=== PATIENT | male | born 1975 | race Caucasian/White ===

== ENCOUNTER 2017-07-24 01:56 | Emergency (ER) | payer MEDICAID ==
[2017-07-24] MEDS ORDERED: FLUORESCEIN SODIUM 1 MG STRIP OP ONE (02:09)
[2017-07-24] MEDS ORDERED: PROPARACAINE 0.5% 15 ML OPHT DROP ONE (02:09)
[2017-07-24] MEDS ORDERED: OFLOXACIN 0.3% SOLN PREPACK OPHT.BTL TAKEHOME ONE (03:48)
--- NOTE | 2017-07-24 03:50 | EDPHY ---
H & P Stated Complaint: possible piece of glass in left eye Time Seen by Provider: 07/24/17 03:31 HPI/ROS: HPI The patient presents with left eye pain and irritation. Earlier tonight a glass bowl broke on the table in front of him and he felt a shard of glass enter his left eye. He was able to flush his eye with some improvement in the symptoms, however he continues to have irritation and redness of his eye. He does not have any vision changes. He does not have any drainage from the eye. He does not wear contacts. He denies any other complaints.. REVIEW OF SYSTEMS Constitutional: No fever, no chills. Eyes: No discharge. Skin: No rashes. Neurological: No headache. PMHx: Healthy PHYSICAL General Appearance: Alert, no distress Eyes: Pupils equal and round no pallor or injection EYE EXAM Visual Acuity: noted from Nurse's notes. Pupils: equal round and reactive to light EOMI Skin: no proptosis, no periorbital erythema or swelling, no vesicles, upper eyelid everted with no foreign body visualized Conjunctivae: diffuse injection, no discharge Cornea: exam with fluoroscein shows multiple small abrasions at 6 o'clock which are superficial Anterior chamber:normal, no hyphema or hypopyon ENT, Mouth: Mucous membranes moist Respiratory: Breathing comfortably Extremities: symmetrical, full range of motion Psychiatric: Patient is oriented X 3, there is no agitation Source: Patient Exam Limitations: No limitations - Personal History Current Tetanus Diphtheria and Acellular Pertussis (TDAP): Unsure - Medical/Surgical History Hx Asthma: No Hx Chronic Respiratory Disease: No Hx Diabetes: No Hx Cardiac Disease: No Hx Renal Disease: No Hx Cirrhosis: No Hx Alcoholism: No Hx HIV/AIDS: No Hx Splenectomy or Spleen Trauma: No Other PMH: denies - Social History Smoking Status: Never smoked Constitutional: Initial Vital Signs Temperature (C) 36.9 C 07/24/17 02:00 Heart Rate 59 L 07/24/17 02:00 Respiratory Rate 20 07/24/17 02:00 Blood Pressure 130/78 H 07/24/17 02:00 O2 Sat (%) 98 07/24/17 02:00 O2 Delivery Mode Room Air Allergies/Adverse Reactions: No Known Allergies Allergy (Unverified 07/24/17 01:59) Home Medications: Medication Instructions Recorded NK [No Known Home Meds] 07/24/17 Medical Decision Making Differential Diagnosis: This is a healthy 41-year-old man who presents with foreign body to his left eye earlier tonight now with irritation. On exam, he does have conjunctival injection. Slit lamp exam using fluorescein demonstrates staining in the lower visual axis concerning for corneal abrasion. Doubt retained foreign body given nonvisualized on slit-lamp exam or on eyelid eversion. Doubt corneal ulcer based on exam. Plan for prophylactic antibiotic eyedrops, ophthalmology follow-up if not better in 1-2 days.. - Data Points Medications Given: Discontinued Medications Ofloxacin (Ocuflox 0.3% Opht Drops Prepack) 1 btl TAKEHOME EDNOW ONE Stop: 07/24/17 03:49 Last Admin: 07/24/17 04:12 Dose: 1 btl Departure - Departure Disposition: Home, Routine, Self-Care Clinical Impression: Corneal abrasion Qualifiers: Encounter type: initial encounter Laterality: left Qualified Code(s): S05.02XA - Injury of conjunctiva and corneal abrasion without foreign body, left eye, initial encounter Condition: Good Instructions: Corneal Abrasion (ED) Additional Instructions: Please follow-up with the putty mixer and applier in 1-2 days unless your feeling completely better. Use the ofloxacin eyedrops 2 drops in your eye 5 times a day while awake for 7 days. Referrals: Elia Wallace MD [Medical Doctor] - As per Instructions
[2017-07-24] MEDS ORDERED: OFLOXACIN 0.3% 5ML OPHT DROPS LEFTEYE SCH (04:00)
[2017-07-24 04:18] VITALS: BP 131/86; PULSE 55; RESP 18; TEMP 98.1; O2SAT 96
== END 2017-07-24 04:19 | disposition home or self-care (01) ==
DX: S05.02XA Injury of conjunctiva and corneal abrasion without foreign body, left eye, initial encounter (principal); X58.XXXA Exposure to other specified factors, initial encounter